=== PATIENT | female | born 1990 ===

== ENCOUNTER 2020-01-15 11:20 | Observation (INO) | payer MEDICAID, OTHER ==
[~2020-01-15] VITALS: Ht 165.1 cm; Wt 79.4 kg
[2020-01-15] MEDS ORDERED: FOLI1TAB6 PO (11:54)
[2020-01-15] MEDS ORDERED: PREN-96 PO (11:54)
[2020-01-15] MEDS: TERBUTALINE SULFATE 1 MG/ML 1ML VIAL SC SCH ×2 (12:54→13:13)
== END 2020-01-15 13:33 | disposition home or self-care (01) | DRG 566 ==
LOC: LDRP 11:20
PROVIDERS: ADMIT Obstetrics & Gynecology; ATTEND Obstetrics & Gynecology
DX: O42.92 Full-term premature rupture of membranes, unspecified as to length of time between rupture and onset of labor (principal); O62.9 Abnormality of forces of labor, unspecified; Z3A.38 38 weeks gestation of pregnancy
CPT/HCPCS: 59025; 81002; 84112; 96372; G0378; J3105; Q0114